=== PATIENT | female | born 1950 | race African-American/Black ===

== ENCOUNTER 2017-03-27 07:45 | Inpatient (IN) | payer OTHER ==
[2017-03-27] VITALS (16 sets, daily range): BP systolic 97–161; BP diastolic 42–91
[~2017-03-27] VITALS: Ht 167.6 cm; Wt 86.2 kg
[~2017-03-27 07:45] MED LIST: ASPIRIN-LOW81 MG ORAL; ATORVASTATIN CA20 MG ORAL; TRIAMTERENE-HC1 EAC7 ORAL
[2017-03-27] MEDS ORDERED: Thrombin 5000 units TOPIC ONE (07:57)
[2017-03-27] MEDS ORDERED: Bacitracin 50000 Units Vial ONE (07:58)
[2017-03-27] MEDS ORDERED: ceFAZolin 1gm/50ml Premix 50 ML IV ONE (07:58)
[2017-03-27] MEDS ORDERED: Thrombin 5000 units spray kit TOPIC ONE (07:58)
[2017-03-27] MEDS ORDERED: Gelfoam Absorbable 1gm powder pkt TOPIC ONE (07:58)
[2017-03-27] MEDS ORDERED: Bupivacaine w/Epi 0.75% 30ml Vial INJ ONE (07:58)
--- NOTE | 2017-03-27 08:28 | Pre-Procedure Note/Attestation ---
Pre-Procedure Note/Attestation Complete Prior to Procedure Procedure Narrative: L4-5 decompression and possible discectomy Indications for Procedure Pre-Operative Diagnosis: L4-5 disc hernia and stenosis Attestation I attest that I discussed the nature of the procedure; its benefits; risks and complications; and alternatives (and the risks and benefits of such alternatives ), prior to the procedure, with the patient (or the patient's legal outside sales account representative). I attest that, if there was a reasonable possibility of needing a blood transfusion, the patient (or the patient's legal outside sales account representative) was given the [facility] standardized written summary, pursuant to the Phillip Jamie Blood Safety Act ([place] Health and Safety Code # 1645, as amended). I attest that I re-evaluated the patient just prior to the surgery and that there has been no change in the patient's H&P, except as documented below: TAMELA KRISHNAMURTHY Mar 27, 2017 08:28
--- NOTE | 2017-03-27 08:28 | Pre-Procedure Note/Attestation ---
Pre-Procedure Note/Attestation Complete Prior to Procedure Procedure Narrative: L4-5 decompression and possible discectomy Indications for Procedure Pre-Operative Diagnosis: L4-5 disc hernia and stenosis Attestation I attest that I discussed the nature of the procedure; its benefits; risks and complications; and alternatives (and the risks and benefits of such alternatives ), prior to the procedure, with the patient (or the patient's legal union contract representative). I attest that, if there was a reasonable possibility of needing a blood transfusion, the patient (or the patient's legal union contract representative) was given the [facility] standardized written summary, pursuant to the Phillip Jamie Blood Safety Act ([place] Health and Safety Code # 1645, as amended). I attest that I re-evaluated the patient just prior to the surgery and that there has been no change in the patient's H&P, except as documented below: TAMELA KRISHNAMURTHY Mar 27, 2017 08:28
--- NOTE | 2017-03-27 08:28 | Pre-Procedure Note/Attestation ---
Pre-Procedure Note/Attestation Complete Prior to Procedure Procedure Narrative: L4-5 decompression and possible discectomy Indications for Procedure Pre-Operative Diagnosis: L4-5 disc hernia and stenosis Attestation I attest that I discussed the nature of the procedure; its benefits; risks and complications; and alternatives (and the risks and benefits of such alternatives ), prior to the procedure, with the patient (or the patient's legal packaging sales representative). I attest that, if there was a reasonable possibility of needing a blood transfusion, the patient (or the patient's legal packaging sales representative) was given the [facility] standardized written summary, pursuant to the Phillip Jamie Blood Safety Act ([place] Health and Safety Code # 1645, as amended). I attest that I re-evaluated the patient just prior to the surgery and that there has been no change in the patient's H&P, except as documented below: TAMELA KRISHNAMURTHY Mar 27, 2017 08:28
[2017-03-27] MEDS ORDERED: Zemuron 50mg/5ml Inj IV ONE (08:30)
[2017-03-27] MEDS ORDERED: Ketorolac 30mg Inj ONE (08:30)
[2017-03-27] MEDS ORDERED: fentaNYL 100 mcg/2 mL IV ONE (08:30)
[2017-03-27] MEDS ORDERED: Lidocaine 1% MPF 10mg/ml 5ml ONE (08:30)
[2017-03-27] MEDS ORDERED: LR 1000ml ONE (08:30)
[2017-03-27] MEDS ORDERED: Sterile Water Irrig 1000ml IRRIG ONE (08:30)
[2017-03-27] MEDS ORDERED: Succinylcholine 20mg/ml 10ml vial ONE (08:30)
[2017-03-27] MEDS ORDERED: Propofol 1,000mg/ 100ml btl IV ONE (08:30)
[2017-03-27] MEDS ORDERED: Atropine Sulfate 0.4mg/ml inj ONE (08:30)
[2017-03-27] MEDS ORDERED: Glycopyrrolate 0.2mg/ml 1ml Vial ONE (08:30)
[2017-03-27] MEDS ORDERED: Morphine Sulfate 10mg/ml Inj ONE (08:30)
[2017-03-27] MEDS ORDERED: Neostigmine 1mg/ml 10ml Inj ONE (08:30)
[2017-03-27] MEDS ORDERED: Sodium Chloride 10ml vial INJ ONE (08:30)
[2017-03-27] MEDS ORDERED: NS Irrig 1000ml ONE (08:30)
[2017-03-27] MEDS ORDERED: Midazolam 2mg/2ml Inj ONE (08:30)
[2017-03-27] MEDS ORDERED: ePHEDrine 50mg/ml Inj ONE (08:30)
[2017-03-27] MEDS ORDERED: LR 1000ml 1,000 ML IVLG SCH (09:47)
--- NOTE | 2017-03-27 09:47 | Anethesia Preoperative Eval ---
Anesthesia Pre-op PMH/ROS General Date of Evaluation: Mar 27, 2017 Time of Evaluation: 08:10 Anesthesiologist: Dilan ASA Score: ASA 3 Mallampati Score Class I : Soft palate, uvula, fauces, pillars visible Class II: Soft palate, uvula, fauces visible Class III: Soft palate, base of uvula visible Class IV: Only hard plate visible Mallampati Classification: Class II Surgeon: Rand Diagnosis: Lumbar radiculopathy Surgical Procedure: L4-L5 laminotomy with discectomy and decompression Anesthesia History: none Family History: no anesthesia problems Allergies: Coded Allergies: No Known Allergies (Unverified , 03/27/17) Medications: see eMAR Past Medical History Cardiovascular: Reports: HTN, Denies: CAD, DC, valve dz, arrhythmia, other Pulmonary: Reports: asthma, Denies: COPD, JEANETH, other Gastrointestinal/Genitourinary: Reports: GERD, Denies: CRI, ESRD, other Neurologic/Psychiatric: Reports: depression/anxiety, other - chronic pain, Denies: dementia, CVA, TIA Endocrine: Denies: DM, hypothyroidism, steroids, other HEENT: Denies: cataract (L), cataract (R), glaucoma, [place] (L), [place] (R), other Hematology/Immune: Denies: anemia, DVT, bleeding disorder, other Musculoskeletal/Integumentary: Reports: DJD, Denies: OA, RA, DDD, edema, other Other: other - overweight PMH Narrative: as above PSxH Narrative: cholecystectomy craniotomy for lobotomy Anesthesia Pre-op Phys. Exam Physician Exam Last Vital Signs Date Time Temp Pulse Resp B/P (MAP) Pulse Ox O2 Delivery O2 Flow Rate FiO2 03/27/17 08:11 98.8 51 51 161/91 100 Room Air Constitutional: NAD Neurologic: CN 2-12 intact Cardiovascular: RRR, no M/R/G Respiratory: CTA Gastrointestinal: S/NT/ND Airway Exam Mallampati Score: Class II MO: limited Neck: stiff ROM: limited Teeth: missing Dentures: upper, lower Anesthesia Pre-op A/P Labs see chart Risk Assessment & Plan Assessment: ASA 3 Plan: GA with ETT prone position neuromonitoring Status Change Before Surgery: No Pre-Antibiotics Drug: Ancef 2gr Given Within 1 Hr of Incision: Yes Time Given: 09:22 FARHAN AYOUB M.D. Mar 27, 2017 09:47
--- NOTE | 2017-03-27 09:47 | Anethesia Preoperative Eval ---
Anesthesia Pre-op PMH/ROS General Date of Evaluation: Mar 27, 2017 Time of Evaluation: 08:10 Anesthesiologist: Dilan ASA Score: ASA 3 Mallampati Score Class I : Soft palate, uvula, fauces, pillars visible Class II: Soft palate, uvula, fauces visible Class III: Soft palate, base of uvula visible Class IV: Only hard plate visible Mallampati Classification: Class II Surgeon: Rand Diagnosis: Lumbar radiculopathy Surgical Procedure: L4-L5 laminotomy with discectomy and decompression Anesthesia History: none Family History: no anesthesia problems Allergies: Coded Allergies: No Known Allergies (Unverified , 03/27/17) Medications: see eMAR Past Medical History Cardiovascular: Reports: HTN, Denies: CAD, [place], valve dz, arrhythmia, other Pulmonary: Reports: asthma, Denies: COPD, JEANETH, other Gastrointestinal/Genitourinary: Reports: GERD, Denies: CRI, ESRD, other Neurologic/Psychiatric: Reports: depression/anxiety, other - chronic pain, Denies: dementia, CVA, TIA Endocrine: Denies: DM, hypothyroidism, steroids, other HEENT: Denies: cataract (L), cataract (R), glaucoma, [place] (L), [place] (R), other Hematology/Immune: Denies: anemia, DVT, bleeding disorder, other Musculoskeletal/Integumentary: Reports: DJD, Denies: OA, RA, DDD, edema, other Other: other - overweight PMH Narrative: as above PSxH Narrative: cholecystectomy craniotomy for lobotomy Anesthesia Pre-op Phys. Exam Physician Exam Last Vital Signs Date Time Temp Pulse Resp B/P (MAP) Pulse Ox O2 Delivery O2 Flow Rate FiO2 03/27/17 08:11 98.8 51 51 161/91 100 Room Air Constitutional: NAD Neurologic: CN 2-12 intact Cardiovascular: RRR, no M/R/G Respiratory: CTA Gastrointestinal: S/NT/ND Airway Exam Mallampati Score: Class II MO: limited Neck: stiff ROM: limited Teeth: missing Dentures: upper, lower Anesthesia Pre-op A/P Labs see chart Risk Assessment & Plan Assessment: ASA 3 Plan: GA with ETT prone position neuromonitoring Status Change Before Surgery: No Pre-Antibiotics Drug: Ancef 2gr Given Within 1 Hr of Incision: Yes Time Given: 09:22 FARHAN AYOUB M.D. Mar 27, 2017 09:47
--- NOTE | 2017-03-27 09:47 | Anethesia Preoperative Eval ---
Anesthesia Pre-op PMH/ROS General Date of Evaluation: Mar 27, 2017 Time of Evaluation: 08:10 Anesthesiologist: Dilan ASA Score: ASA 3 Mallampati Score Class I : Soft palate, uvula, fauces, pillars visible Class II: Soft palate, uvula, fauces visible Class III: Soft palate, base of uvula visible Class IV: Only hard plate visible Mallampati Classification: Class II Surgeon: Rand Diagnosis: Lumbar radiculopathy Surgical Procedure: L4-L5 laminotomy with discectomy and decompression Anesthesia History: none Family History: no anesthesia problems Allergies: Coded Allergies: No Known Allergies (Unverified , 03/27/17) Medications: see eMAR Past Medical History Cardiovascular: Reports: HTN, Denies: CAD, ID, valve dz, arrhythmia, other Pulmonary: Reports: asthma, Denies: COPD, JEANETH, other Gastrointestinal/Genitourinary: Reports: GERD, Denies: CRI, ESRD, other Neurologic/Psychiatric: Reports: depression/anxiety, other - chronic pain, Denies: dementia, CVA, TIA Endocrine: Denies: DM, hypothyroidism, steroids, other HEENT: Denies: cataract (L), cataract (R), glaucoma, [place] (L), [place] (R), other Hematology/Immune: Denies: anemia, DVT, bleeding disorder, other Musculoskeletal/Integumentary: Reports: DJD, Denies: OA, RA, DDD, edema, other Other: other - overweight PMH Narrative: as above PSxH Narrative: cholecystectomy craniotomy for lobotomy Anesthesia Pre-op Phys. Exam Physician Exam Last Vital Signs Date Time Temp Pulse Resp B/P (MAP) Pulse Ox O2 Delivery O2 Flow Rate FiO2 03/27/17 08:11 98.8 51 51 161/91 100 Room Air Constitutional: NAD Neurologic: CN 2-12 intact Cardiovascular: RRR, no M/R/G Respiratory: CTA Gastrointestinal: S/NT/ND Airway Exam Mallampati Score: Class II MO: limited Neck: stiff ROM: limited Teeth: missing Dentures: upper, lower Anesthesia Pre-op A/P Labs see chart Risk Assessment & Plan Assessment: ASA 3 Plan: GA with ETT prone position neuromonitoring Status Change Before Surgery: No Pre-Antibiotics Drug: Ancef 2gr Given Within 1 Hr of Incision: Yes Time Given: 09:22 FARHAN AYOUB M.D. Mar 27, 2017 09:47
[2017-03-27] MEDS ORDERED: DiphenhydrAMINE 50mg/ml Inj IVP PRN (10:00)
[2017-03-27] MEDS ORDERED: Ketorolac 30mg Inj IV PRN (10:00)
[2017-03-27] MEDS ORDERED: Midazolam 2mg/2ml Inj IVP PRN (10:00)
[2017-03-27] MEDS ORDERED: fentaNYL 100 mcg/2 mL IV PRN (10:00)
[2017-03-27] MEDS ORDERED: Hydromorphone 0.5mg/0.5ml inj IVP PRN (10:00)
[2017-03-27] MEDS ORDERED: Bupivacaine 0.5% Inj 30 ml vial INJ ONE (11:05)
[2017-03-27] MEDS ORDERED: Neosporin Oint Ud Pkt TOPIC ONE (11:08)
[2017-03-27] MEDS ORDERED: Metoclopramide 10mg/2ml Inj IVP PRN (11:15)
--- NOTE | 2017-03-27 11:25 | Brief Operative Note ---
Immediate Post Operative Note Operative Note Chief Complaint: Right leg pain Pre-op Diagnosis: L4-5 disc hernia and stenosis Procedure: Right L4-5 decompression and discectomy Post-op Diagnosis: same Post-op Diagnosis: same as pre-op Findings: consistent w/pre-op dx studies Surgeon: Juan Krishnamurthy [employer] Administrator: Brett Le Anesthesiologist: Larry Kong Anesthesia: general Specimen: none Complications: none Condition: stable Fluids: 1 L Estimated Blood Loss: minimal Drains: hemovac Implant(s) used?: No TAMELA KRISHNAMURTHY Mar 27, 2017 11:25
--- NOTE | 2017-03-27 11:25 | Brief Operative Note ---
Immediate Post Operative Note Operative Note Chief Complaint: Right leg pain Pre-op Diagnosis: L4-5 disc hernia and stenosis Procedure: Right L4-5 decompression and discectomy Post-op Diagnosis: same Post-op Diagnosis: same as pre-op Findings: consistent w/pre-op dx studies Surgeon: Juan Krishnamurthy Public Address Technician: Brett eL Anesthesiologist: Larry Kong Anesthesia: general Specimen: none Complications: none Condition: stable Fluids: 1 L Estimated Blood Loss: minimal Drains: hemovac Implant(s) used?: No TAMELA KRISHNAMURTHY Mar 27, 2017 11:25
--- NOTE | 2017-03-27 11:46 | Immediate Post-Op Evaluation ---
Immediate Post-Op Evalulation Immediate Post-Op Evalulation Procedure: L4-L5 laminotomy with discectomy and decompression Date of Evaluation: Mar 27, 2017 Time of Evaluation: 11:45 IV Fluids: 1200 Blood Products: none Estimated Blood Loss: 50 Urinary Output: 750 Blood Pressure Systolic: 104 Blood Pressure Diastolic: 51 Pulse Rate: 48 Respiratory Rate: 20 O2 Sat by Pulse Oximetry: 99 Temperature (Fahrenheit): 97.8 Pain Score (1-10): 2 Nausea: No Vomiting: No Complications none Patient Status: reacts, patent, none Hydration Status: adequate FARHAN AYOUB M.D. Mar 27, 2017 11:46
--- NOTE | 2017-03-27 11:54 | General Progress Note ---
Progress Note Progress Note The patient is in recovery room and moves bilateral lower extremities with good strength and states that her pain in the right leg resolved. Vitals are stable. pain is well managed. no family in the waiting area. TAMELA KRISHNAMURTHY Mar 27, 2017 11:54
[2017-03-27] MEDS ORDERED: Tylenol #3 tab (300mg/30mg) ORAL PRN ×2 (14:15→15:00)
[2017-03-27] MEDS ORDERED: Cyclobenzaprine 10mg Tab ORAL PRN (14:15)
[2017-03-27] MEDS ORDERED: Morphine Sulfate 4mg/ml Inj IVP PRN (14:15)
[2017-03-27] MEDS: ceFAZolin sod 1 GM in D5W 55 ML IV SCH ×2 (15:28→23:38)
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
[2017-03-27] MEDS: Docusate 100mg cap ORAL SCH (17:11)
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
[2017-03-28 00:40] VITALS: BP 114/53
[2017-03-28 04:00] VITALS: BP 109/54
[2017-03-28 08:00] VITALS: BP 138/67
[2017-03-28] MEDS: ceFAZolin sod 1 GM in D5W 55 ML IV SCH (09:17)
[2017-03-28] MEDS: Docusate 100mg cap ORAL SCH (09:17)
[2017-03-28 12:00] VITALS: BP 155/75
--- NOTE | 2017-03-28 13:46 | Progress Note ---
DATE: 03/28/2017 ACUTE PAIN MANAGEMENT PHYSICIAN PROGRESS NOTE MEDICATIONS: Medication administration record reviewed. Medication include Phenergan, Protonix, Zofran, morphine, Colace, Benadryl, Flexeril, Catapres, Cepacol, Mylanta, Tylenol No. 3 with Codeine, and Fioricet. LABORATORY STUDIES: No interval laboratory studies. OBJECTIVE: VITAL SIGNS: Afebrile, pulse 38, respirations 20, blood pressure 109/54, and oxygen saturation 100% on supplemental nasal cannula oxygen. I spent over 60 minutes in consultation. Internal Medicine consultation by Dr. Bakari Pastor is appreciated as the patient continues to have a heart rate between 35 and 40. Her preoperative EKG showed a heart rate of 44. The patient denies any chest pain or shortness of breath. The patient has yet to ambulate out of bed and we will start training with physical therapy later this morning. The patient has been voiding urine after the Red catheter was removed. The patient is hungry and denies any nausea symptoms. We will advance her to regular diet quickly this morning to see if she can tolerate food. The pain has been adequately controlled using her analgesic regimen as above. I did leave a prescription for Tylenol No. 3 with Codeine for outpatient usage. The patient has had chronic headaches and she has been tolerating the oral Fioricet without any complications. Her blood pressure is in the normal range and Dr. Bakari Pastor is following the patient's multiple medical issues, especially her chronic bradycardia. We will see how she advance with physical therapy later today. If she tolerates ambulation and is cleared by physical therapy, she should be able to discharge home to her father later today. The patient was turned to the left lateral decubitus position. I removed the lumbar spine dressing showing the incision line clean and dry with Durabond Sealant intact. Hemovac drainage overnight was less than 40 mL. With the Hemovac drain taken off of suction and with end-expiration, I personally removed the indwelling lumbar spine drain catheter. The tip was intact. Alcohol swab was applied to the drain hole site followed by a sterile 4 x 4 gauze with Island bordered gauze dressing. Bakari Hewitt M.D. DR: NAHID JOB#: [id number] CC:
[2017-03-28] MEDS ORDERED: Tubing IV Secondary IV ONE (13:59)
--- NOTE | 2017-03-29 08:00 | Consultation ---
DATE OF CONSULTATION: 03/28/2017 REASON FOR CONSULTATION: I was asked to evaluate this patient in postoperative consultation severe bradycardia. HISTORY OF PRESENT ILLNESS: The patient was seen and evaluated, preoperatively had a thallium stress test done that shown to have nonischemia. EKG preoperative shows heart rate of 45. There is no TSH done preoperatively. TSH in-house is slightly lower than 2. Otherwise, the patient has no issue. Prior to admission, the patient was on Lipitor, Topamax, aspirin which has been held, triamterene, Naprosyn which was held, vitamin D, calcium, and Flonase. ALLERGIES: No known drug allergies. PAST SURGICAL HISTORY: The patient has had history of brain surgery "x3," cholecystectomy, , and hysterectomy. PAST MEDICAL HISTORY: Hypertension, hyperlipidemia, facial droop due to brain surgery, and migraine headache. PHYSICAL EXAMINATION: GENERAL: This is an unfortunate female with a facial droop. NECK: There is no JVD. Decreased range of motion of cervical spine. HEART: S1 and S2. LUNGS: Clear. ABDOMEN: Soft, nontender, and nondistended. EXTREMITIES: No clubbing or cyanosis ASSESSMENT AND PLAN: This is an unfortunate female who is status post spine decompression lumbar surgery. The patient is doing well. Preoperative antibiotics was given. Postoperatively, the patient was noted to have heart rate dropped to 30s. Her heart beat is usually 45. She has not had any issue. She is not dizzy and her blood pressure is okay. She is okay to be discharged from medical perspective. There is no further recommendation. Bakari Pastor M.D. DR: LONA JOB#: [id number] CC: Gino Gordillo M.D.
--- NOTE | 2017-03-29 12:58 | Discharge Summary ---
Discharge Summary Hospital Course Date of Admission Mar 27, 2017 at 07:45 Date of Discharge Mar 28, 2017 at 14:00 Admitting Diagnosis HPI Karis Gonzalez is a 66 year old female who was admitted on Mar 27, 2017 at 07: 45 for Rt Herniated Disc Hospital Course [id number] Discharge Discharge Disposition Patient was discharged to Home (01) Discharge Diagnoses: Karis Brown NP Mar 29, 2017 12:58
--- NOTE | 2017-03-29 12:58 | Discharge Summary ---
Discharge Summary Hospital Course Date of Admission Mar 27, 2017 at 07:45 Date of Discharge Mar 28, 2017 at 14:00 Admitting Diagnosis HPI Karis Gonzalez is a 66 year old female who was admitted on Mar 27, 2017 at 07: 45 for Rt Herniated Disc Hospital Course [id number] Discharge Discharge Disposition Patient was discharged to Home (01) Discharge Diagnoses: Karis Brown NP Mar 29, 2017 12:58
--- NOTE | 2017-03-29 12:58 | Discharge Summary ---
Discharge Summary Hospital Course Date of Admission Mar 27, 2017 at 07:45 Date of Discharge Mar 28, 2017 at 14:00 Admitting Diagnosis HPI Karis Gonzalez is a 66 year old female who was admitted on Mar 27, 2017 at 07: 45 for Rt Herniated Disc Hospital Course [id number] Discharge Discharge Disposition Patient was discharged to Home (01) Discharge Diagnoses: Karis Brown NP Mar 29, 2017 12:58
--- NOTE | 2017-03-29 13:31 | Cardiology Report ---
APPROVED REPORT EKG Measurement Heart [id number] Marked sinus bradycardia Abnormal ECG
--- NOTE | 2017-03-29 13:31 | Cardiology Report ---
APPROVED REPORT EKG Measurement Heart [id number] [place] 206P50 [id number] Marked sinus bradycardia Abnormal ECG
--- NOTE | 2017-03-29 13:31 | Cardiology Report ---
APPROVED REPORT EKG Measurement Heart [id number] [id number] Marked sinus bradycardia Abnormal ECG
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
== END 2017-03-28 14:00 | disposition home or self-care (01) | DRG 520 ==
LOC: SDSOVERFLO 07:45 → 3E 12:38 → 2E 14:30
DX: M51.16 Intervertebral disc disorders with radiculopathy, lumbar region (principal); I10 Essential (primary) hypertension; M48.061 Spinal stenosis, lumbar region without neurogenic claudication; R00.1 Bradycardia, unspecified; E78.5 Hyperlipidemia, unspecified; V89.2XXS Person injured in unspecified motor-vehicle accident, traffic, sequela
CPT/HCPCS: 36415; 84443; 87081; 93005; 94003; 94150; 94760; J2250; J2710